=== PATIENT | female | born 1940 | race Hispanic/Latino ===

== ENCOUNTER 2023-09-17 07:34 | Emergency (ER) | payer SELFPAY ==
[2023-09-17] MEDS ORDERED: ACETAMINOPHEN 500 MG TAB ONE (08:22)
[2023-09-17] MEDS ORDERED: IBUPROFEN 400 MG TAB ONE (08:22)
[2023-09-17 08:33] LABS: Specific Gravity 1.019 (1.005-1.030); Urine Bacteria None Seen /HPF (<20); Urine Bilirubin NEGATIVE (Negative); Urine Blood 1+ (Negative); Urine Clarity Clear (Clear); Urine Color Yellow (Yellow); Urine Glucose TRACE (Negative); Urine Mucus Slight /HPF (None Seen); Urine Protein TRACE (Negative); Urine Urobilinogen 2+ (Normal); Urine pH 6.5 (5.0-7.0)
--- NOTE | 2023-09-17 08:49 | ER ---
Nurse's Notes [facility] Name: Man Maier Age: 83 yrs Sex: Female : 1940 Arrival Date: 09/17/2023 Time: 07:34 Bed 21 Private MD: Diagnosis: Viral infection, unspecified Presentation: 09/17 07:40 Chief complaint: Patient states: PATIENT COMPLAINS OF BODY ACHES AND DECREASED APPETITE db X 3 DAYS. FLU LIKE SYMPTOMS. Coronavirus screen: Client denies travel out of the [place] in the last 14 days. At this time, the client does not indicate any symptoms associated with coronavirus-19. Ebola Screen: Patient negative for fever greater than or equal to 101.5 degrees Fahrenheit, and additional compatible Ebola Virus Disease symptoms Patient denies exposure to infectious person. Patient denies travel to an Ebola-affected area in the 21 days before illness onset. No symptoms or risks identified at this time. Initial Sepsis Screen: Does the patient meet any 2 criteria? No. Patient's initial sepsis screen is negative. Does the patient have a suspected source of infection? No. Patient's initial sepsis screen is negative. Risk Assessment: Do you want to hurt yourself or someone else? Patient reports no desire to harm self or others. Onset of symptoms was September 14, 2023. 07:40 Method Of Arrival: Ambulatory db 07:40 Acuity: SAIDA 3 db Triage Assessment: 08:00 General: Appears in no apparent distress. comfortable, Behavior is calm, cooperative. db Pain: Complains of pain in BODY ACHES. Neuro: Level of Consciousness is awake, alert, obeys commands, Oriented to person, place, time, situation. Historical: - Allergies: 08:00 No Known Allergies; db - PMHx: 08:00 None; db - PSHx: 08:00 None; db - Immunization history:: Adult Immunizations unknown. - Social history:: Smoking status: Patient denies any tobacco usage or history of. Screenin:01 [facility] ED Fall Risk Assessment (Adult) History of falling in the last 3 months, db including since admission No falls in past 3 months (0 pts) Confusion or Disorientation No (0 pts) Intoxicated or Sedated No (0 pts) Impaired Gait No (0 pts) Mobility Assist Device Used No (0 pt) Altered Elimination No (0 pt) Score/Fall Risk Level 0 - 2 = Low Risk Oriented to surroundings, Maintained a safe environment. Abuse screen: Denies threats or abuse. Denies injuries from another. Nutritional screening: No deficits noted. 08:01 Tuberculosis screening: No symptoms or risk factors identified. db Assessment: 08:01 Reassessment: Patient appears in no apparent distress at this time. SEE TRIAGE FOR db INITIAL ASSESSMENT. 09:00 Reassessment: Patient appears in no apparent distress at this time. Patient and/or db family updated on plan of care and expected duration. Pain level reassessed. Patient is alert, oriented x 3, equal unlabored respirations, skin warm/dry/pink. Vital Signs: 07:40 BP 105 / 71; Pulse 73; Resp 16; Temp 98.5(O); Pulse Ox 98% ; db ED Course: 07:38 Patient arrived in ED. mg5 07:42 Irwin Levi MD is Attending Physician. ec2 07:42 Arm band placed on Patient placed in an exam room, on a stretcher. ll1 07:58 Charlene Ledesma, RN is Primary Nurse. db 08:00 Triage completed. db 08:01 Patient has correct armband on for positive identification. Bed in low position. Call db light in reach. Side rails up X 1. Pulse ox on. NIBP on. 09:09 Provided Education on: DISCHARGES. db 09:09 No provider procedures requiring assistance completed. Patient did not have IV access db during this emergency room visit. Administered Medications: 08:10 Drug: Acetaminophen PO 1000 mg PO once Route: PO; db 09:11 Follow up: Response: No adverse reaction db 08:10 Drug: Ibuprofen PO 800 mg PO once Route: PO; db 09:11 Follow up: Response: No adverse reaction db 08:10 Drug: MetoCLOPramide PO 10 mg PO once Route: PO; db 09:11 Follow up: Response: No adverse reaction db Medication: 08:01 VIS not applicable for this client. db Outcome: 08:48 Discharge ordered by . ec2 09:09 Discharged to home ambulatory, db 09:09 Condition: stable 09:09 Discharge instructions given to patient, Instructed on discharge instructions, follow up and referral plans. Prescriptions given X 1, 09:11 Patient left the ED. db Signatures: Chavez Mccauley RN RN ll1 Charlene Ledesma, RN RN db Lani Adams mg5 Irwin Levi MD MD ec2 Corrections: (The following items were deleted from the chart) 08:02 08:01 Tuberculosis screening: rohini nova
--- NOTE | 2023-09-17 08:49 | EDPHYS ---
Physician Documentation [facility] Name: Man Maier Age: 83 yrs Sex: Female : 1940 Arrival Date: 09/17/2023 Time: 07:34 Bed 21 Private MD: ED Physician Irwin Levi HPI: 09/17 07:54 This 83 yrs old Female presents to ER via Unassigned with complaints of Flu ec2 Symptoms. 07:54 Patient arrives today for evaluation of URI signs and symptoms. Patient has been having ec2 symptoms for approximately 5 days. Patient has other sick contacts at home as well. Some decreased p.o. intake some associated nausea and some increased urinary frequency. No difficulty breathing, no chest pain.. Historical: - Allergies: 08:00 No Known Allergies; db - PMHx: 08:00 None; db - PSHx: 08:00 None; db - Immunization history:: Adult Immunizations unknown. - Social history:: Smoking status: Patient denies any tobacco usage or history of. ROS: 07:54 Constitutional: as per hpi ec2 Exam: 07:54 Constitutional: GEN: NAD Head: atraumatic Eyes: EOMI Ears: External ears are ec2 normal. CV: regular rate LUNGS: no respiratory distress ABD: non-distended SKIN: no evidence of rashes MSK: no evidence of trauma NEURO: moves all extremities equally Vital Signs: 07:40 BP 105 / 71; Pulse 73; Resp 16; Temp 98.5(O); Pulse Ox 98% ; db MDM: 07:42 Patient medically screened. ec2 07:54 ED course: Patient arrives today due to concern for URI signs and symptoms. Examination ec2 remarkable for well-appearing nontoxic individual is otherwise in no acute distress. Will obtain viral swabs, treat the patient symptoms and reassess the patient. Currently considering URI, UTI, low suspicion for pneumonia.. 08:36 Data reviewed: vital signs. ED course: Negative flu and COVID testing. Urine is ec2 pertinent for ketonuria otherwise noninfectious appearing. . 08:47 ED course: On reassessment patient is well-appearing and reports improvement in her ec2 symptoms. Will discharge home with prescription for Reglan, suspect viral process. Return precautions given. 09/17 07:42 Order name: COVID-19 SARS RT PCR; Complete Time: 08:36 ec2 09/17 07:42 Order name: Influenza Screen (a \T\ B); Complete Time: 08:31 ec2 09/17 07:52 Order name: UAM; Complete Time: 08:36 ec2 Administered Medications: 08:10 Drug: Acetaminophen PO 1000 mg PO once Route: PO; db 09:11 Follow up: Response: No adverse reaction db 08:10 Drug: Ibuprofen PO 800 mg PO once Route: PO; db 09:11 Follow up: Response: No adverse reaction db 08:10 Drug: MetoCLOPramide PO 10 mg PO once Route: PO; db 09:11 Follow up: Response: No adverse reaction db Disposition Summary: 09/17/23 08:48 Discharge Ordered Notes: Location: Home ec2 Condition: Stable ec2 Diagnosis - Viral infection, unspecified ec2 Discharge Instructions: - Discharge Summary Sheet ec2 - Viral Illness, Adult ec2 Forms: - Medication Reconciliation Form ec2 - Thank You Letter ec2 - Antibiotic Education ec2 - Prescription Opioid Use ec2 - Patient Portal Instructions ec2 - Leadership Thank You Letter ec2 Prescriptions: - Reglan 10 mg Oral Tablet - take 1 tablet ORAL route every 6 hours take 30 minutes before meals and at ec2 bedtime; 20 tablet; Refills: 0, Product Selection Permitted Signatures: Dispatcher [employer] Charlene Lira, JAY RN Irwin Porter MD MD ec2
[2023-09-17 09:17] VITALS: BP 105/71; TEMP 98.5; O2SAT 98
== END 2023-09-17 09:11 | disposition home or self-care (01) ==
LOC: ER 07:34
DX: B34.9 Viral infection, unspecified (principal); Z11.52 Encounter for screening for COVID-19
CPT/HCPCS: 81001; 87635; 87804; 99283